=== PATIENT | male | born 1985 | race Caucasian/White ===

== ENCOUNTER 2017-01-31 05:01 | Emergency (ER) | payer OTHER ==
[~2017-01-31] VITALS: Ht 170.2 cm; Wt 75.0 kg
[2017-01-31] MEDS ORDERED: MORPHINE SULFATE 10 MG/ML CPJ IM ONE (07:15)
[2017-01-31] MEDS ORDERED: KETOROLAC 60MG/2ML VIAL IM ONE (07:15)
[2017-01-31] MEDS ORDERED: ONDANSETRON 4MG ODT PO ONE (07:15)
[2017-01-31 07:17] VITALS: BP 145/92
== END 2017-01-31 08:26 | disposition left against medical advice (07) ==
LOC: ER 07:50
DX: N20.0 Calculus of kidney (principal); Z87.442 Personal history of urinary calculi
CPT/HCPCS: 96372; 99284; J1885; J2270; J7040; Q0162